=== PATIENT | female | born 1935 | race Caucasian/White ===

== ENCOUNTER 2023-04-29 05:26 | Emergency (ER) | payer MEDICARE ==
[~2023-04-29] VITALS: Ht 160 cm; Wt 59.1 kg
[~2023-04-29 05:26] MED LIST: BENAZEPRIL PO; HYDROCHLOROT PO
[2023-04-29 05:28] VITALS: TEMP 98.4
[2023-04-29] MEDS ORDERED: HYDROCHLOROTHIAZIDE 25 MG TABLET PO ONE (06:15)
[2023-04-29 07:19] VITALS: BP 156/86; PULSE 57; RESP 15
== END 2023-04-29 08:46 | disposition home or self-care (01) ==
LOC: EMS 05:32
DX: I10 Essential (primary) hypertension (principal); R11.2 Nausea with vomiting, unspecified
CPT/HCPCS: 99283